=== PATIENT | male | born 1970 | race Caucasian/White ===

== ENCOUNTER 2017-10-07 18:59 | Emergency (ER) | payer BC ==
[~2017-10-07] VITALS: Ht 180.3 cm; Wt 148.6 kg
[~2017-10-07 18:59] MED LIST: AMLODIPINE10 MG PO; COREG 25MG25 MG/TAB PO; COREG25 MG PO; GOOD SENSE ASPI81 M1 PO; KLOR-CON 1010 MEQ PO; LASIX 40MG TABL40 MG PO; LEVSIN-SL0.125 MG SL; LISINOPRIL20 MG PO
[2017-10-07 20:00] LABS: HEMATOCRIT 45.2 % (42.0-52.0); HEMOGLOBIN 15.6 g/dL (13.5-18.0); MEAN CELL VOLUME 89 fl (78-100); MEAN CORPUSCULAR HEMOGLOBIN 31 pg (27-31); MEAN CORPUSCULAR HGB CONC 35 g/dL (33-37); MEAN PLATELET VOLUME 9.3 fl (7.4-10.4); PLATELET COUNT 145 K/mm3 (130-400); RED BLOOD COUNT 5.11 M/mm3 (4.20-5.60); WHITE BLOOD COUNT 9.4 K/mm3 (4.8-10.8)
[2017-10-07 20:02] LABS: ALBUMIN 3.8 g/dL (3.5-5.0); BUN/CREATININE RATIO 11.1 (6.0-26.0); CALCIUM 9.2 mg/dL (8.4-10.2); POTASSIUM 3.8 mmol/L (3.6-5.0); TOTAL PROTEIN 7.5 g/dL (6.3-8.2)
[2017-10-07 20:03] LABS: PROTHROMBIN TIME 10.1 SECONDS (9.0-12.0)
[2017-10-07 20:09] LABS: CKMB ISOENZYME 1.2 ng/mL (0.6-3.5)
[2017-10-07 20:14] LABS: LYMPHOCYTE 23 % (20-51); NEUTROPHILS 62 % (42-75); TROPONIN-I < 0.03 ng/mL (0.00-0.06)
[2017-10-07 20:16] LABS: MONOCYTE 11 % (3-10)
[2017-10-07 20:53] VITALS: BP 160/107
== END 2017-10-07 20:53 | disposition home or self-care (01) ==
LOC: ED 18:59
PROVIDERS: Nurse Practitioner Primary Care
DX: I20.9 Angina pectoris, unspecified (principal); I11.0 Hypertensive heart disease with heart failure; I50.9 Heart failure, unspecified; J44.9 Chronic obstructive pulmonary disease, unspecified; K21.9 Gastro-esophageal reflux disease without esophagitis; Z98.1 Arthrodesis status

== ENCOUNTER → 2017-10-08 | Outpatient (CLI) | payer BC ==
[2017-10-07 20:53] VITALS: BP 160/107
[2017-10-08 09:45] LABS: CKMB ISOENZYME 1.3 ng/mL (0.6-3.5)
[2017-10-08 09:49] LABS: TROPONIN-I < 0.03 ng/mL (0.00-0.06)
== END ==
LOC: LAB 08:52
PROVIDERS: Nurse Practitioner Primary Care
DX: R07.9 Chest pain, unspecified (principal)